=== PATIENT | male | born 1995 | race Caucasian/White ===

== ENCOUNTER 2016-05-29 03:26 | Emergency (ER) | payer BC ==
[~2016-05-29] VITALS: Ht 165.1 cm; Wt 64.0 kg
[2016-05-29 03:29] VITALS: TEMP 36.6; Ht 165.1 cm; Wt 64.0 kg
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
[2016-05-29 04:44] LABS: BUN/CREATININE RATIO 16.5 (10-20); CALCIUM 8.7 mg/dl (8.5-10.1); CREATININE 1.1 mg/dl (0.60-1.40); POTASSIUM 3.3 mmol/L (3.5-5.1)
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
[2016-05-29 12:40] VITALS: BP 127/79; PULSE 82; O2SAT 99
--- NOTE | 2016-05-29 12:43 | EMERGENCY ROOM VISIT NOTE ---
ED Visit Note The patient was signed out to me by Dr. Llamas. The patient has no complaints and is awake, alert and oriented at the time of evaluation and disposition and discharge at 12:40 PM.
== END 2016-05-29 12:50 | disposition home or self-care (01) ==
LOC: EDBD 03:26 → C.EDB 03:27
DX: F10.129 Alcohol abuse with intoxication, unspecified (principal); S00.81XA Abrasion of other part of head, initial encounter; W03.XXXA Other fall on same level due to collision with another person, initial encounter; F17.210 Nicotine dependence, cigarettes, uncomplicated